=== PATIENT | male | born 1950 | race Caucasian/White ===

== ENCOUNTER 2016-11-08 13:26 | Day surgery (SDC) | payer OTHER ==
[~2016-11-08] VITALS: Ht 175.3 cm; Wt 93.0 kg
[~2016-11-08 13:26] MED LIST: BYSTOLIC10 MG PO; BYSTOLIC2.5 MG PO; KIONEX15 GM/60 M PO; LINZESS145 MCG PO; LIPITOR80 MG PO; LO-DOSE ASPIRIN81 M1 PO; NIFEDIPINE ER30 MG PO; PANTOPRAZOLE SO40 MG PO; PROCARDIA XL60 MG PO; RENAL-VITE TAB0.8 MG PO; STOOL SOFTENER100 M1 PO; VITAMIN D2000 UNIT PO; ZEMPLAR1 MCG PO; ZYLOPRIM100 MG PO
[2016-11-08 13:54] VITALS: BP 157/76
[2016-11-08 14:24] LABS: HEMATOCRIT 35.9 % (38.0-50.0); MCH 29.1 PG (29.0-34.0); MCV 90.9 FL (86-99); MEAN PLAT.VOLUME 10.9 uM^3 (9.0-12.4); PLATELET COUNT 135 K/uL (156-360); RBC DIS.WIDTH-CV 14.8 % (11.8-14.6); RED BLOOD COUNT 3.95 M/uL (4.00-5.50); WHITE BLOOD COUNT 9.9 K/uL (4.1-10.2)
[2016-11-08 14:41] LABS: ANION GAP 10 MEQ/L (2-14); CHLORIDE 106 MEQ/L (99-109); POTASSIUM 4.7 MEQ/L (3.7-5.4); SAMPLE HEMOLYSIS CHECK 0; SAMPLE ICTERIC CHECK 0; SAMPLE LIPEMIA CHECK 0; SODIUM 145 MEQ/L (136-147)
[2016-11-08 14:46] LABS: GFR ESTIMATE (CALCULATED) 12 mL/min/; GLUCOSE 88 mg/dL (70-99); UREA NITROGEN (BUN) 36 mg/dL (9-23)
[2016-11-08 18:59] VITALS: BP 190/90
[2016-11-08 19:41] VITALS: BP 188/88
== END 2016-11-08 19:44 | disposition home or self-care (01) ==
LOC: SDC 13:26
PROVIDERS: Surgery
PROC: 0WWG43Z Revision of Infusion Device in Peritoneal Cavity, Percutaneous Endoscopic Approach (ICD-10-PCS; principal; 2016-11-08)
DX: T85.631A Leakage of intraperitoneal dialysis catheter, initial encounter (principal); K66.0 Peritoneal adhesions (postprocedural) (postinfection); I12.0 Hypertensive chronic kidney disease with stage 5 chronic kidney disease or end stage renal disease; N18.6 End stage renal disease; Z99.2 Dependence on renal dialysis; E78.2 Mixed hyperlipidemia; I25.10 Atherosclerotic heart disease of native coronary artery without angina pectoris; Z95.1 Presence of aortocoronary bypass graft; I25.2 Old myocardial infarction; I71.4 Abdominal aortic aneurysm, without rupture; I71.2 Thoracic aortic aneurysm, without rupture; Z87.891 Personal history of nicotine dependence; Y83.1 Surgical operation with implant of artificial internal device as the cause of abnormal reaction of the patient, or of later complication, without mention of misadventure at the time of the procedure
CPT/HCPCS: 80048; 85027; 93005; J0690; J1100; J2405; J2710; J3010